=== PATIENT | male | born 1990 | race Two or more races ===

== ENCOUNTER 2016-06-13 00:58 | Inpatient (IN) | payer SELFPAY ==
[2016-06-13] VITALS (12 sets, daily range): BP systolic 105–128; BP diastolic 50–73
[~2016-06-13] VITALS: Ht 170.2 cm; Wt 78.0 kg
[2016-06-13 01:53] LABS: BILIRUBIN,URINE NEGATIVE (NEG); GLUCOSE,URINE NEGATIVE (NEG); NITRITE,URINE NEGATIVE (NEG); PROTEIN,URINE NEGATIVE (NEG-TRACE); UROBILINOGEN,URINE 0.2 mg/dL (0.2 mg/dL)
[2016-06-13 01:53] LABS: BASO % 0 % (0-3); EOS % 0 % (0-3); HEMATOCRIT 42.1 % (39.0-53.0); HEMOGLOBIN 13.6 g/dL (13.0-17.5); LYMPH # 1.3 x10^3/uL (1.0-4.8); LYMPH % 7 % (24-48); MEAN CORPUSCULAR HEMOGLOBIN 25 pg (25-35); MEAN CORPUSCULAR HGB CONC 32 g/dL (31-37); MEAN CORPUSCULAR VOLUME 78 fL (79-100); MONO % 8 % (0-9); NEUT % 85 % (31-73); PLATELET COUNT 233 x10^3/uL (140-400); RED CELL DISTRIBUTION WIDTH 15.3 % (11.5-14.5); WHITE BLOOD COUNT 18.7 x10^3/uL (4.0-11.0)
[2016-06-13] MEDS ORDERED: IV NORMAL SALINE 1000ML BAG 1,000 ML IV SCH (02:00)
[2016-06-13 02:03] LABS: BACTERIA,URINE 0 /HPF (0-FEW); RBC,URINE OCC /HPF (0-2); SQUAMOUS EPITHELIAL CELL,UR OCC /LPF; WBC,URINE 0 /HPF (0-4)
[2016-06-13 02:04] LABS: CALCIUM 8.9 mg/dL (8.5-10.1); CREATININE 0.9 mg/dL (0.7-1.3); GFR 103.7; POTASSIUM 3.6 mmol/L (3.5-5.1)
[2016-06-13 02:09] LABS: ALBUMIN 3.7 g/dL (3.4-5.0); ALBUMIN/GLOBULIN RATIO 0.9 (1.0-1.7); TOTAL BILIRUBIN 0.4 mg/dL (0.2-1.0); TOTAL PROTEIN 7.8 g/dL (6.4-8.2)
[2016-06-13] MEDS ORDERED: CONTRAST GIVEN MC PRN (02:15)
[2016-06-13] MEDS ORDERED: ONDANSETRON PF 4 MG/2 ML VIAL. IV ONE (02:15)
[2016-06-13] MEDS: FENTANYL PF 100 MCG/2 ML VIAL. IV PRN ×2 (02:16→03:03)
[2016-06-13] MEDS ORDERED: IOHEXOL 300 MG/ML 75 ML VIAL IV ONE (02:30)
[2016-06-13 03:02] LABS: PLT ESTIMATE ADEQUATE (ADEQUATE)
--- NOTE | 2016-06-13 03:10 | RAD ---
PQRS STATEMENT One or more of the following individualized dose reduction techniques were utilized for this study: 1.Automated exposure control. 2.Adjustment of the mA and/orkVaccording to patient size. 3.Use of iterative reconstruction technique. Indication:rlq pain x tonight; Omni 300, 75ml Reason: right lower quadrant pain, possible appendicitis / Spl. Instructions: / History: Comparison: none available Technique: multiple contiguous axial images were obtained through the abdomen and pelvis after intravenous administration of iodinated contrast. Coronal and sagittal reformations were created. Findings: The appendix is inflamed and contains at least 2 appendicoliths. There is no pneumoperitoneum. No loculated fluid collection. The lung bases are clear. The heart size is normal. The liver is normal in size with no focal lesions identified. The gallbladder is nondistended. The pancreas is unremarkable. The spleen and adrenal glands are within normal limits. The kidneys demonstrate no hydronephrosis or mass. The abdominal aorta is normal in caliber. There is no ascites or adenopathy. The bowel loops are normal in caliber. The urinary bladder is within normal limits. No destructive osseous lesion is identified. Impression: Acute appendicitis with no evidence for abscess or rupture. Electronically signed by: Alberto Catalan (Jun 13, 2016 03:09:11)
--- NOTE | 2016-06-13 03:23 | PHYS DOC ---
Past Medical History Past Medical History: No Pertinent History Past Surgical History: No Surgical History Alcohol Use: None Drug Use: None Adult General Chief Complaint Chief Complaint: FLANK PAIN HPI HPI Patient is a 26 year old male who presents with complaint of pain in the right lower quadrant of his abdomen. Patient states that this started yesterday morning. Patient states the pain has been constant and has been getting sharper in his right lower quadrant. Patient denies any significant past medical history. Patient also denies any previous surgeries. Patient states that he has had worsening anorexia and nausea. Patient denies known fevers but states that he has felt hot. Patient rates his pain currently is 10 out of 10. Patient denies radiation of pain. Patient states that his pain does worsen with movement. Review of Systems Review of Systems Constitutional: Subjective fever [] Eyes: Denies change in visual acuity, redness, or eye pain [] HENT: Denies nasal congestion or sore throat [] Respiratory: Denies cough or shortness of breath [] Cardiovascular: Denies chest pain or edema [] GI: Abdominal pain, nausea, anorexia, vomiting, denies bloody stools or diarrhea [] : Denies dysuria or hematuria [] Musculoskeletal: Denies back pain or joint pain [] Integument: Denies rash or skin lesions [] Neurologic: Denies headache, focal weakness or sensory changes [] Endocrine: Denies polyuria or polydipsia [] Current Medications Current Medications Current Medications Medications (Trade) Dose Ordered Sig/[facility] Start Time Stop Time Status Last Admin Dose Admin Fentanyl Citrate 50 mcg 50 mcg PRN Q15MIN PRN 06/13/16 01:45 06/13/16 04:00 DC 06/13/16 03:03 50 MCG Info (Do NOT chart on this entry -- for MONITORING) 1 each PRN DAILY PRN 06/13/16 02:15 06/15/16 02:14 Iohexol (Omnipaque 300 Mg/ml) 75 ml 1X ONCE 06/13/16 02:30 06/13/16 02:31 DC 06/13/16 02:47 75 ML Ondansetron HCl (Zofran) 4 mg 1X ONCE 06/13/16 02:15 06/13/16 02:16 DC 06/13/16 02:15 4 MG Sodium Chloride (Iv Sodium Chloride 0.9% 1000ml Bag) 1,000 ml @ 1,000 mls/hr Q1H 06/13/16 02:00 06/13/16 02:59 DC 06/13/16 02:15 1,000 MLS/HR Allergies Allergies Allergies Coded Allergies Type Severity Reaction Last Updated Verified No Known Drug Allergies 06/13/16 No Physical Exam Physical Exam Constitutional: Alert, afebrile, appears in moderate discomfort. [] HENT: Normocephalic, atraumatic, bilateral external ears normal, oropharynx moist, no oral exudates, nose normal. [] Eyes: PERRLA, EOMI, conjunctiva normal, no discharge. [] Neck: Normal range of motion, no tenderness, supple, no stridor. [] Cardiovascular:Heart rate regular rhythm, no murmur [] Lungs & Thorax: Bilateral breath sounds clear to auscultation [] Abdomen: Bowel sounds normal, soft, tenderness to palpation at McBurney's point with guarding. [] Skin: Warm, dry, no erythema, no rash. [] Back: No tenderness, no CVA tenderness. [] Extremities: No tenderness, no cyanosis, no clubbing, ROM intact, no edema. [] Neurologic: Alert and oriented X 3, normal motor function, normal sensory function, no focal deficits noted. [] Current Patient Data Vital Signs Vital Signs Date Time Temp Pulse Resp B/P Pulse Ox O2 Delivery O2 Flow Rate FiO2 06/13/16 03:03 20 99 Room Air 06/13/16 03:00 82 131/63 06/13/16 01:15 99.1 99.1 Lab Values Laboratory Tests Test 06/13/16 01:15 06/13/16 01:30 Urine Collection Type Unknown Urine Color Yellow Urine Clarity Clear Urine pH 6.0 Urine Specific [place] >=1.030 Urine Protein Negativemg/dL (NEG-TRACE) Urine Glucose (UA) Negativemg/dL (NEG) Urine Ketones (Stick) Negativemg/dL (NEG) Urine Blood Negative (NEG) Urine Nitrite Negative (NEG) Urine Bilirubin Negative (NEG) Urine Urobilinogen Dipstick 0.2mg/dL (0.2 mg/dL) Urine Leukocyte Esterase Negative (NEG) Urine RBC Occ/HPF (0-2) Urine WBC 0/HPF (0-4) Urine Squamous Epithelial Cells Occ/LPF Urine Bacteria 0/HPF (0-FEW) Urine Mucus Mod/LPF White Blood Count 18.7x10^3/uL (4.0-11.0) H Red Blood Count 5.40x10^6/uL (4.30-5.70) Hemoglobin 13.6g/dL (13.0-17.5) Hematocrit 42.1% (39.0-53.0) Mean Corpuscular Volume 78fL (79-100) L Mean Corpuscular Hemoglobin 25pg (25-35) Mean Corpuscular Hemoglobin Concent 32g/dL (31-37) Red Cell Distribution Width 15.3% (11.5-14.5) H Platelet Count 233x10^3/uL (140-400) Neutrophils (%) (Auto) 85% (31-73) H Lymphocytes (%) (Auto) 7% (24-48) L Monocytes (%) (Auto) 8% (0-9) Eosinophils (%) (Auto) 0% (0-3) Basophils (%) (Auto) 0% (0-3) Neutrophils # (Auto) 15.8x10^3uL (1.8-7.7) H Lymphocytes # (Auto) 1.3x10^3/uL (1.0-4.8) Monocytes # (Auto) 1.5x10^3/uL (0.0-1.1) H Eosinophils # (Auto) 0.0x10^3/uL (0.0-0.7) Basophils # (Auto) 0.0x10^3/uL (0.0-0.2) Segmented Neutrophils % 86% (35-66) H Band Neutrophils % 3% (0-9) Lymphocytes % 4% (24-48) L Monocytes % 7% (0-10) Platelet Estimate Adequate (ADEQUATE) Sodium Level 134mmol/L (136-145) L Potassium Level 3.6mmol/L (3.5-5.1) Chloride Level 97mmol/L (98-107) L Carbon Dioxide Level 26mmol/L (21-32) Anion Gap 11 (6-14) Blood Urea Nitrogen 9mg/dL (8-26) Creatinine 0.9mg/dL (0.7-1.3) Estimated GFR (Cockcroft-Gault) 103.7 BUN/Creatinine Ratio 10 (6-20) Glucose Level 118mg/dL (70-99) H Calcium Level 8.9mg/dL (8.5-10.1) Total Bilirubin 0.4mg/dL (0.2-1.0) Aspartate Amino Transferase (AST) 151U/L (15-37) H Alanine Aminotransferase (ALT) 75U/L (16-63) H Alkaline Phosphatase 88U/L (46-116) Total Protein 7.8g/dL (6.4-8.2) Albumin 3.7g/dL (3.4-5.0) Albumin/Globulin Ratio 0.9 (1.0-1.7) L Lipase 149U/L (73-393) Laboratory Tests 06/13/16 01:30 Laboratory Tests 06/13/16 01:30 EKG EKG Not performed [] Radiology/Procedures Radiology/Procedures [facility] [address] [place] [address] IMAGING REPORT Signed PATIENT: ACOSTA SHERMAN ACCOUNT: [id number] : 1990 LOCATION: ER AGE: 26 SEX: M EXAM STATUS: REG ER ORD. PHYSICIAN: PETER RAMIREZ MD REASON: right lower quadrant pain, possible appendicitis PROCEDURE: ABD PELV W/ IV CONTRAST ONLY PQRS STATEMENT One or more of the following individualized dose reduction techniques were utilized for this study: 1.Automated exposure control. 2.Adjustment of the mA and/orkVaccording to patient size. 3.Use of iterative reconstruction technique. Indication:rlq pain x tonight; Omni 300, 75ml Reason: right lower quadrant pain, possible appendicitis / Spl. Instructions: / History: Comparison: none available Technique: multiple contiguous axial images were obtained through the abdomen and pelvis after intravenous administration of iodinated contrast. Coronal and sagittal reformations were created. Findings: The appendix is inflamed and contains at least 2 appendicoliths. There is no pneumoperitoneum. No loculated fluid collection. The lung bases are clear. The heart size is normal. The liver is normal in size with no focal lesions identified. The gallbladder is nondistended. The pancreas is unremarkable. The spleen and adrenal glands are within normal limits. The kidneys demonstrate no hydronephrosis or mass. The abdominal aorta is normal in caliber. There is no ascites or adenopathy. The bowel loops are normal in caliber. The urinary bladder is within normal limits. No destructive osseous lesion is identified. Impression: Acute appendicitis with no evidence for abscess or rupture. Electronically signed by: Dayanara Catalan (Jun 13, 2016 03:09:11) DICTATED and SIGNED BY: DAYANARA CATALAN MD DATE: 06/13/16 0309 CC: PETER RAMIREZ MD; NO PCP ~ [] Course & Med Decision Making Course & Med Decision Making Pertinent Labs and Imaging studies reviewed. (See chart for details) Patient confirmed to have appendicitis. The patient was started on IV Zosyn. I spoke with Dr. Dacosta of general surgery who asked that the patient be admitted to his service. Patient will have expected surgery later today. Dragon Disclaimer Dragon Disclaimer This electronic medical record was generated, in whole or in part, using a voice recognition dictation system. Departure Departure Impression: Primary Impression: Acute appendicitis Disposition: ADMITTED INPATIENT Admitting Physician: Other Condition: STABLE Referrals: NO PCP (PCP) Problem Qualifiers Primary Impression: Acute appendicitis Acute appendicitis type: with localized peritonitis Qualified Code: K35.3 - Acute appendicitis with localized peritonitis PETER RAMIREZ MD Jun 13, 2016 03:22
[2016-06-13] MEDS ORDERED: ONDANSETRON PF 4 MG/2 ML VIAL. IV PRN ×4 (03:30→12:00)
[2016-06-13] MEDS ORDERED: FENTANYL PF 100 MCG/2 ML VIAL. IV PRN ×5 (03:30→08:30)
[2016-06-13] MEDS ORDERED: ACETAMINOPHEN 325 MG TABLET. PO PRN (03:30)
[2016-06-13] MEDS ORDERED: PIP/TAZO PER PHARMACY MC PRN (03:30)
[2016-06-13] MEDS ORDERED: PIPERACILLIN/TAZOBACTAM 4.5 GM in IV NORMAL SALINE 100ML 100 ML IV ONE (04:00)
--- NOTE | 2016-06-13 04:02 | ACF ---
Admission Forms Criteria ABDOMINAL PAIN Clinical Indications for Admission to Inpatient Care (Place 'X' for any and all applicable criteria): Admission is indicated for ANY ONE of the following(1)(2)(3)(4)(5): [X]I. Inpatient admission required rather than observation care (Also use Abdominal Pain: Observation Care, as appropriate) because of ANY ONE of the following: [ ]a) Severe pain requiring acute inpatient management [X]b) Identification of etiology/finding that requires inpatient care (eg, aortic dissection, free air) [ ]c) Absent bowel sounds with complete ileus(6) [ ]d) Suspected toxic megacolon [ ]e) Severe electrolyte abnormalities requiring inpatient care [ ]f) High fever or infection requiring inpatient admission as indicated by ANY ONE of following(7)(8): [ ] i) Appropriate outpatient or observational care antimicrobial treatment unavailable, not effective, or not feasible [ ] ii) Documented bacteremia [ ] iii) Temperature > 104.9 degrees F (oral) [ ] iv) T >103.1 F (oral) or < 96.8 F(rectal) that does not respond to all emergency treatment measures [ ]g) Signs of intestinal obstruction [B] [ ]h) Hemodynamic instability [ ]i) IV fluid to replace significant ongoing losses (greater than 3 L/m2 per day) (12)(13) [ ]j) Percutaneous or open drainage (eg, abscess, biliary tract ) procedures [ ]k) Parenteral nutrition regimen that must be implemented on inpatient basis [ ]l) Other condition,treatment or monitoring requiring inpatient admission. [ ]II. Peritoneal signs present [ ]III. Surgery needed that cannot be performed on an ambulatory basis. [ ]IV. Evaluation requires patient to not eat or drink for extended period ( eg, more than 24 hours). [ ]V. Contraindications and/or Inappropriate clinical situations for Observational Care in patients with abdominal pain, when ANY ONE of the following is required: [ ]a) Thorough evaluation is required to prevent catastrophic events due to delays in diagnosing (e.g.Mesenteric ischemia) 1,3 [ ]b) Patient with severe pathology or with chronic symptoms unlikely to improve in the ED stay (3) [ ]. General contraindications and/or Inappropriate clinical situations for Observational Care in patients with abdominal pain, when ANY ONE of the following is required: [ ]a) Prediction of prolongation of LOS based on ANY ONE of the following may be considered as a contraindication for observational care 2, 3, 4, 5, 6, 7, 8, 9, 10, 11 [ ]i) Age > 65 yrs. [ ]ii) Patient arriving by ambulance [ ]iii) Patient with high acuity [ ]iv) Patient requiring vital sign monitoring [ ]v) Patient on IV medication [ ]b) Systolic blood pressures 180mmHg 3,12 [ ]c) Patient with altered mental status including delirium and other alteration of consciousness, (3) [ ]d) Patient whose discharge disposition will be to a [place] [facility] home or rehabilitation home should not be managed in Emergency Department Observation Unit. CMS rule requires 3 days hospital stay before such placement.3,13 [ ]e) Patient with failure to thrive due to broad array of etiologies 3,16,17 [ ]f) Inability to ambulate 3,14 Extended stay beyond goal length of stay may be needed for(2)(3): [ ]a) Persistent abdominal pain with suspected intra-abdominal process [ ]b) Diagnosed condition requiring continued stay (e.g., pancreatitis, complicated diverticulitis) [ ]c) Surgery (e.g., colectomy) The original [facility] content created by [employer] has been revised. The portions of the content which have been revised are identified through the use of italic text or in bold, and [email or web address] has neither reviewed nor approved the modified material.All other unmodified content is copyright [employer] [facility]. Please see references footnoted in the original [facility] edition 2016 Admission Criteria Met?: Yes NILAM AZAR Jun 13, 2016 04:02
[2016-06-13] MEDS: IV NORMAL SALINE 1000ML BAG 1,000 ML IV SCH ×3 (04:34→19:23)
[2016-06-13] MEDS ORDERED: BUPIVACAINE-EPI 0.25%-1:200000 50 ML VIAL. ONE (08:26)
[2016-06-13] MEDS ORDERED: IV RINGERS,LACTATED 1000ML 1,000 ML IV SCH (08:26)
[2016-06-13] MEDS ORDERED: LIDOCAINE 1% 1 ML SYRINGE. ID PRN ×2 (08:30)
[2016-06-13] MEDS ORDERED: PROCHLORPERAZINE 10 MG/2 ML VIAL. IV PRN ×2 (08:30)
[2016-06-13] MEDS ORDERED: MORPHINE SULFATE 2 MG/ML DISP.SYRIN. IV PRN ×3 (08:30→12:00)
[2016-06-13] MEDS ORDERED: HYDROMORPHONE 2 MG/ML VIAL. IV PRN ×2 (08:30)
[2016-06-13] MEDS ORDERED: MIDAZOLAM HCL 2 MG/2 ML VIAL. ONE (10:07)
[2016-06-13] MEDS ORDERED: SEVOFLURANE 61 TO 120 MINUTES. IH ONE (10:07)
[2016-06-13] MEDS ORDERED: NEOSTIGMINE METHYLSULFATE 5 MG/5 ML SYRINGE. ONE ×2 (10:07→10:09)
[2016-06-13] MEDS ORDERED: GLYCOPYRROLATE 1 MG/5 ML VIAL. ONE (10:08)
[2016-06-13] MEDS ORDERED: FENTANYL PF 100 MCG/2 ML VIAL. ONE ×2 (10:08→11:26)
[2016-06-13] MEDS ORDERED: KETOROLAC 60 MG/2 ML SYRINGE FOR OR. ONE (10:09)
[2016-06-13] MEDS ORDERED: LIDOCAINE 2% 100 MG/5 ML DISP.SYRIN. ONE (10:09)
[2016-06-13] MEDS ORDERED: DEXAMETHASONE SOD PHOS 20 MG/5 ML VIAL. ONE (10:09)
[2016-06-13] MEDS ORDERED: PROPOFOL 20 ML IV ONE (10:09)
[2016-06-13] MEDS ORDERED: ONDANSETRON PF 4 MG/2 ML VIAL. ONE (10:09)
[2016-06-13] MEDS ORDERED: ROCURONIUM 50 MG/5 ML VIAL. ONE (10:11)
[2016-06-13] MEDS ORDERED: SUCCINYLCHOLINE 200 MG/10 ML VIAL. ONE (10:11)
[2016-06-13] MEDS: IV RINGERS,LACTATED 1000ML 1,000 ML IV SCH ×2 (10:16→12:07)
--- NOTE | 2016-06-13 10:41 | PDOC1 ---
History and Physical Date of Admission Date of Admission DATE: 06/13/16 TIME: 10:35 Identification/Chief Complaint Chief Complaint RLQ abdominal pain with nausea Source Source: Patient History of Present Illness History of Present Illness 26 yo male came to ED with abdominal pain for 12 hours. Pain is in the right abdomen, constant and getting worse. He has nausea and anorexia. Past Medical History Cardiovascular: No pertinent hx Pulmonary: No pertinent hx GI: No pertinent hx Heme/Onc: No pertinent hx Hepatobiliary: No pertinent hx Psych: No pertinent hx Rheumatologic: No pertinent hx Infectious disease: No pertinent hx ENT: No pertinent hx Renal/: No pertinent hx Endocrine: No pertinent hx Dermatology: No pertinent hx Past Surgical History Past Surgical History: No pertinent history Family History Family History: No Significant Social History Smoke: No ALCOHOL: none Drugs: None Current Problem List Problem List Problems Medical Problems: (1) Acute appendicitis Status: Acute Problems: Current Medications Current Medications Current Medications Fentanyl Citrate 50 mcg 50 mcg PRN Q15MIN PRN IV PAIN GREATER THAN 3/10 Last administered on 06/13/16 03:03; Start 06/13/16 at 01:45; Stop 06/13/16 at 04:00 ; Status DC Sodium Chloride (Iv Sodium Chloride 0.9% 1000ml Bag) 1,000 ml @ 1,000 mls/hr Q1H IV Last administered on 06/13/16 02:15; Start 06/13/16 at 02:00; Stop at 02:59; Status DC Ondansetron HCl (Zofran) 4 mg 1X ONCE IV Last administered on 06/13/16 02:15 ; Start 06/13/16 at 02:15; Stop 06/13/16 at 02:16; Status DC Iohexol (Omnipaque 300 Mg/ml) 75 ml 1X ONCE IV Last administered on 06/13/16 02:47; Start 06/13/16 at 02:30; Stop 06/13/16 at 02:31; Status DC Info (Do NOT chart on this entry -- for MONITORING) 1 each PRN DAILY PRN MC SEE COMMENTS; Start 06/13/16 at 02:15; Stop 06/15/16 at 02:14 Piperacillin Sod/ Tazobactam Sod 1 each 1 each PRN DAILY PRN MC SEE COMMENTS; Start 06/13/16 at 03:30 Piperacillin Sod/ Tazobactam Sod/ Sodium Chloride (Zosyn/Iv Sodium Chloride 0.9 % 100ml) 100 ml @ 200 mls/hr 1X ONCE IV Last administered on 06/13/16 03:37 ; Start 06/13/16 at 04:00; Stop 06/13/16 at 04:29; Status DC Ondansetron HCl (Zofran) 4 mg PRN Q8HRS PRN IV NAUSEA/VOMITING; Start 06/13/16 at 03:30; Stop 06/14/16 at 03:29 Fentanyl Citrate 50 mcg 50 mcg PRN Q2HR PRN IV SEVERE PAIN Last administered on 06/13/16 04:34; Start 06/13/16 at 03:30; Stop 06/14/16 at 03:29 Sodium Chloride (Iv Sodium Chloride 0.9% 1000ml Bag) 1,000 ml @ 125 mls/hr Q8H IV Last administered on 06/13/16 04:34; Start 06/13/16 at 03:23; Stop at 03:22 Acetaminophen 650 mg 650 mg PRN Q4HRS PRN PO FEVER; Start 06/13/16 at 03:30; Stop 06/14/16 at 03:29 Piperacillin Sod/ Tazobactam Sod/ Sodium Chloride (Zosyn/Iv Sodium Chloride 0.9 % 50ml) 50 ml @ 100 mls/hr Q6HRS IV ; Start 06/13/16 at 12:00 Bupivacaine HCl/ Epinephrine Bitart (Marcaine-Epi 0.25%-[id number]) 50 ml STK-MED ONCE .ROUTE ; Start 06/13/16 at 08:26; Stop 06/13/16 at 08:27; Status DC Ondansetron HCl (Zofran) 4 mg PRN Q6HRS PRN IV Nausea; Start 06/13/16 at 08:30 ; Stop 06/14/16 at 08:29; Status UNV Fentanyl Citrate (Fentanyl 2ml Vial) 25 mcg PRN Q5MIN PRN IV MILD PAIN; Start 06/13/16 at 08:30; Stop 06/14/16 at 08:29; Status UNV Fentanyl Citrate (Fentanyl 2ml Vial) 50 mcg PRN Q5MIN PRN IV MODERATE PAIN; Start 06/13/16 at 08:30; Stop 06/14/16 at 08:29; Status UNV Morphine Sulfate 1 mg 1 mg PRN Q10MIN PRN IV SEVERE PAIN; Start 06/13/16 at 08: 30; Stop 06/14/16 at 08:29; Status UNV Lactated Ringer's (Iv Lactated Ringers) 1,000 ml @ 0 mls/hr Q0M IV ; Start at 08:26; Stop 06/13/16 at 20:25; Status UNV Lidocaine HCl 2 ml 1X PRN PRN ID IV START; Start 06/13/16 at 08:30; Stop at 08:29; Status UNV Hydromorphone HCl (Dilaudid) 0.5 mg PRN Q10MIN PRN IV SEV PAIN,Second choice; Start 06/13/16 at 08:30; Stop 06/14/16 at 08:29; Status UNV Prochlorperazine Edisylate (Compazine) 5 mg PACU PRN PRN IV NAUSEA; Start 06/13 at 08:30; Stop 06/14/16 at 08:29; Status UNV Ondansetron HCl (Zofran) 4 mg PRN Q6HRS PRN IV Nausea; Start 06/13/16 at 08:30 ; Stop 06/13/16 at 18:00 Fentanyl Citrate (Fentanyl 2ml Vial) 25 mcg PRN Q5MIN PRN IV MILD PAIN; Start 06/13/16 at 08:30; Stop 06/13/16 at 18:00 Fentanyl Citrate (Fentanyl 2ml Vial) 50 mcg PRN Q5MIN PRN IV MODERATE PAIN; Start 06/13/16 at 08:30; Stop 06/13/16 at 18:00 Morphine Sulfate 1 mg 1 mg PRN Q10MIN PRN IV SEVERE PAIN; Start 06/13/16 at 08: 30; Stop 06/13/16 at 18:00 Lactated Ringer's (Iv Lactated Ringers) 1,000 ml @ 30 mls/hr Q24H IV Last administered on 06/13/16t 10:16; Start 06/13/16 at 08:26; Stop 06/13/16 at 20:25 Lidocaine HCl 2 ml 1X PRN PRN ID IV START; Start 06/13/16 at 08:30; Stop at 18:00 Hydromorphone HCl (Dilaudid) 0.5 mg PRN Q10MIN PRN IV SEV PAIN,Second choice; Start 06/13/16 at 08:30; Stop 06/13/16 at 18:00 Prochlorperazine Edisylate (Compazine) 5 mg PACU PRN PRN IV NAUSEA; Start 06/13 at 08:30; Stop 06/13/16 at 18:00 Sevoflurane (Ultane) 60 ml STK-MED ONCE IH ; Start 06/13/16 at 10:07; Stop 06/13 at 10:08; Status DC Neostigmine Methylsulfate 5 mg STK-MED ONCE .ROUTE ; Start 06/13/16 at 10:07; Stop 06/13/16 at 10:08; Status DC Midazolam HCl (Versed) 2 mg STK-MED ONCE .ROUTE ; Start 06/13/16 at 10:07; Stop 06/13/16 at 10:08; Status DC Fentanyl Citrate (Fentanyl 2ml Vial) 100 mcg STK-MED ONCE .ROUTE ; Start at 10:08; Stop 06/13/16 at 10:09; Status DC Glycopyrrolate 1 mg 1 mg STK-MED ONCE .ROUTE ; Start 06/13/16 at 10:08; Stop at 10:09; Status DC Propofol (Diprivan) 20 ml @ As Directed STK-MED ONCE IV ; Start 06/13/16 at 10: 09; Stop 06/13/16 at 10:10; Status DC Ondansetron HCl (Zofran) 4 mg STK-MED ONCE .ROUTE ; Start 06/13/16 at 10:09; Stop 06/13/16 at 10:10; Status DC Dexamethasone Sodium Phosphate (Decadron) 20 mg STK-MED ONCE .ROUTE ; Start at 10:09; Stop 06/13/16 at 10:10; Status DC Ketorolac Tromethamine (Toradol For Or Only) 60 mg STK-MED ONCE .ROUTE ; Start 06/13/16 at 10:09; Stop 06/13/16 at 10:10; Status DC Lidocaine HCl 100 mg STK-MED ONCE .ROUTE ; Start 06/13/16 at 10:09; Stop at 10:10; Status DC Neostigmine Methylsulfate 5 mg STK-MED ONCE .ROUTE ; Start 06/13/16 at 10:09; Stop 06/13/16 at 10:10; Status DC Succinylcholine Chloride (Anectine) 200 mg STK-MED ONCE .ROUTE ; Start 06/13/16 at 10:11; Stop 06/13/16 at 10:12; Status DC Rocuronium [place] (Zemuron) 50 mg STK-MED ONCE .ROUTE ; Start 06/13/16 at 10:11 ; Stop 06/13/16 at 10:12; Status DC Allergies Allergies: Coded Allergies: No Known Drug Allergies (Unverified , 06/13/16) ROS Gastrointestinal: Yes Abdominal Pain, Yes Nausea Physical Exam General: Alert, Oriented X3, Cooperative, mild distress HEENT: Atraumatic, PERRLA, EOMI Lungs: Clear to auscultation, Normal air movement Heart: RRR, no gallops, no murmurs Abdomen: Normal bowel sounds, Soft, Other (TTP RLQ) Rectal Exam: not examined Extremities: No clubbing, No cyanosis, No edema Skin: No rashes Neuro: Normal speech Psych/Mental Status: Mental status NL Vitals Vitals Vital Signs Date Time Temp Pulse Resp B/P Pulse Ox O2 Delivery O2 Flow Rate FiO2 06/13/16 07:00 100.4 100 16 117/61 96 Room Air 100.4 Labs Labs Laboratory Tests Test 06/13/16 01:15 06/13/16 01:30 Urine Collection Type Unknown Urine Color Yellow Urine Clarity Clear Urine pH 6.0 Urine Specific [place] >=1.030 Urine Protein Negativemg/dL (NEG-TRACE) Urine Glucose (UA) Negativemg/dL (NEG) Urine Ketones (Stick) Negativemg/dL (NEG) Urine Blood Negative (NEG) Urine Nitrite Negative (NEG) Urine Bilirubin Negative (NEG) Urine Urobilinogen Dipstick 0.2mg/dL (0.2 mg/dL) Urine Leukocyte Esterase Negative (NEG) Urine RBC Occ/HPF (0-2) Urine WBC 0/HPF (0-4) Urine Squamous Epithelial Cells Occ/LPF Urine Bacteria 0/HPF (0-FEW) Urine Mucus Mod/LPF White Blood Count 18.7x10^3/uL (4.0-11.0) Red Blood Count 5.40x10^6/uL (4.30-5.70) Hemoglobin 13.6g/dL (13.0-17.5) Hematocrit 42.1% (39.0-53.0) Mean Corpuscular Volume 78fL (79-100) Mean Corpuscular Hemoglobin 25pg (25-35) Mean Corpuscular Hemoglobin Concent 32g/dL (31-37) Red Cell Distribution Width 15.3% (11.5-14.5) Platelet Count 233x10^3/uL (140-400) Neutrophils (%) (Auto) 85% (31-73) Lymphocytes (%) (Auto) 7% (24-48) Monocytes (%) (Auto) 8% (0-9) Eosinophils (%) (Auto) 0% (0-3) Basophils (%) (Auto) 0% (0-3) Neutrophils # (Auto) 15.8x10^3uL (1.8-7.7) Lymphocytes # (Auto) 1.3x10^3/uL (1.0-4.8) Monocytes # (Auto) 1.5x10^3/uL (0.0-1.1) Eosinophils # (Auto) 0.0x10^3/uL (0.0-0.7) Basophils # (Auto) 0.0x10^3/uL (0.0-0.2) Segmented Neutrophils % 86% (35-66) Band Neutrophils % 3% (0-9) Lymphocytes % 4% (24-48) Monocytes % 7% (0-10) Platelet Estimate Adequate (ADEQUATE) Sodium Level 134mmol/L (136-145) Potassium Level 3.6mmol/L (3.5-5.1) Chloride Level 97mmol/L (98-107) Carbon Dioxide Level 26mmol/L (21-32) Anion Gap 11 (6-14) Blood Urea Nitrogen 9mg/dL (8-26) Creatinine 0.9mg/dL (0.7-1.3) Estimated GFR (Cockcroft-Gault) 103.7 BUN/Creatinine Ratio 10 (6-20) Glucose Level 118mg/dL (70-99) Calcium Level 8.9mg/dL (8.5-10.1) Total Bilirubin 0.4mg/dL (0.2-1.0) Aspartate Amino Transf (AST/SGOT) 151U/L (15-37) Alanine Aminotransferase (ALT/SGPT) 75U/L (16-63) Alkaline Phosphatase 88U/L (46-116) Total Protein 7.8g/dL (6.4-8.2) Albumin 3.7g/dL (3.4-5.0) Albumin/Globulin Ratio 0.9 (1.0-1.7) Lipase 149U/L (73-393) Laboratory Tests Test 06/13/16 01:15 06/13/16 01:30 Urine Collection Type Unknown Urine Color Yellow Urine Clarity Clear Urine pH 6.0 Urine Specific [place] >=1.030 Urine Protein Negativemg/dL (NEG-TRACE) Urine Glucose (UA) Negativemg/dL (NEG) Urine Ketones (Stick) Negativemg/dL (NEG) Urine Blood Negative (NEG) Urine Nitrite Negative (NEG) Urine Bilirubin Negative (NEG) Urine Urobilinogen Dipstick 0.2mg/dL (0.2 mg/dL) Urine Leukocyte Esterase Negative (NEG) Urine RBC Occ/HPF (0-2) Urine WBC 0/HPF (0-4) Urine Squamous Epithelial Cells Occ/LPF Urine Bacteria 0/HPF (0-FEW) Urine Mucus Mod/LPF White Blood Count 18.7x10^3/uL (4.0-11.0) Red Blood Count 5.40x10^6/uL (4.30-5.70) Hemoglobin 13.6g/dL (13.0-17.5) Hematocrit 42.1% (39.0-53.0) Mean Corpuscular Volume 78fL (79-100) Mean Corpuscular Hemoglobin 25pg (25-35) Mean Corpuscular Hemoglobin Concent 32g/dL (31-37) Red Cell Distribution Width 15.3% (11.5-14.5) Platelet Count 233x10^3/uL (140-400) Neutrophils (%) (Auto) 85% (31-73) Lymphocytes (%) (Auto) 7% (24-48) Monocytes (%) (Auto) 8% (0-9) Eosinophils (%) (Auto) 0% (0-3) Basophils (%) (Auto) 0% (0-3) Neutrophils # (Auto) 15.8x10^3uL (1.8-7.7) Lymphocytes # (Auto) 1.3x10^3/uL (1.0-4.8) Monocytes # (Auto) 1.5x10^3/uL (0.0-1.1) Eosinophils # (Auto) 0.0x10^3/uL (0.0-0.7) Basophils # (Auto) 0.0x10^3/uL (0.0-0.2) Segmented Neutrophils % 86% (35-66) Band Neutrophils % 3% (0-9) Lymphocytes % 4% (24-48) Monocytes % 7% (0-10) Platelet Estimate Adequate (ADEQUATE) Sodium Level 134mmol/L (136-145) Potassium Level 3.6mmol/L (3.5-5.1) Chloride Level 97mmol/L (98-107) Carbon Dioxide Level 26mmol/L (21-32) Anion Gap 11 (6-14) Blood Urea Nitrogen 9mg/dL (8-26) Creatinine 0.9mg/dL (0.7-1.3) Estimated GFR (Cockcroft-Gault) 103.7 BUN/Creatinine Ratio 10 (6-20) Glucose Level 118mg/dL (70-99) Calcium Level 8.9mg/dL (8.5-10.1) Total Bilirubin 0.4mg/dL (0.2-1.0) Aspartate Amino Transf (AST/SGOT) 151U/L (15-37) Alanine Aminotransferase (ALT/SGPT) 75U/L (16-63) Alkaline Phosphatase 88U/L (46-116) Total Protein 7.8g/dL (6.4-8.2) Albumin 3.7g/dL (3.4-5.0) Albumin/Globulin Ratio 0.9 (1.0-1.7) Lipase 149U/L (73-393) Images Images CT shows signs of acute appendicitis no abscess VTE Prophylaxis Ordered VTE Prophylaxis Devices: Yes VTE Pharmacological Prophylaxi: Contraindicated Assessment/Plan Assessment/Plan Acute appendicitis Plan L/S NAT Fraire MD Jun 13, 2016 10:41
[2016-06-13] MEDS: PIPERACILLIN/TAZOBACTAM 3.375 GM in IV NORMAL SALINE 50ML 50 ML IV SCH ×3 (10:55→18:01)
--- NOTE | 2016-06-13 11:53 | PDOC ---
BRIEF OPERATIVE NOTE Date: Jun 13, 2016 Pre-Op Diagnosis Acute appendicitis Post-Op Diagnosis Same Procedure Performed L/S appendectomy Surgeon Praneeth Anesthesia Type: General Blood Loss 10ml Specimens Obtained Appendix Findings as above Complications None NAT LEWIS MD Jun 13, 2016 11:53
[2016-06-13] MEDS ORDERED: 0.9 % SODIUM CHLORIDE 10 ML DISP.SYRIN. IV PRN (12:00)
[2016-06-13] MEDS ORDERED: OXYCODONE/APAP 5/325 TABLET. PO PRN ×2 (12:00)
--- NOTE | 2016-06-13 12:35 | OP ---
DATE OF SURGERY: 06/13/2016 PREOPERATIVE DIAGNOSIS: Acute appendicitis. POSTOPERATIVE DIAGNOSIS: Acute appendicitis. PROCEDURE: Laparoscopic cholecystectomy. SURGEON: Yaya Lewis MD INDICATIONS: The patient is a 26-year-old gentleman who was admitted to the hospital with right lower quadrant abdominal pain and a CT scan showing signs consistent with appendicitis, no abscess. Procedure of laparoscopic appendectomy was explained to the patient through an supervisor personnel clerks. All risks and benefits were also discussed including bleeding, infection, injury to intra-abdominal contents possibly necessitating further open operations. Alternatives of this procedure were also discussed with the patient who seemed to understand and gave verbal and written consent to have the procedure performed. DESCRIPTION OF PROCEDURE: The patient was taken to the operating room and placed in the supine position, general anesthesia was initiated. Once the patient was asleep and intubated, his abdomen was prepped and draped in usual sterile fashion using ChloraPrep. An area just below the umbilicus was injected 0.25% Marcaine with epinephrine. Incision was made with an 11 blade scalpel and a Veress needle was placed within the abdomen. Pneumoperitoneum was achieved. Once this was completed, an 12-mm port was placed and a 5-mm camera was placed within the abdomen. Abdomen was inspected and it was noted that the appendix was quite inflamed, but no abscess or free fluid. At this point, two 5-mm ports were placed, one low in the midline pelvis and one in the mid right abdomen. The appendix was grasped and a window was propagated at the base of the appendix through the mesoappendix. An Endo-SUJATA stapler was used to staple and transect the base of the appendix. A second load was used to staple and transect the mesoappendix. It was quite large, so 2 more loads were used to completely transect and staple the mesoappendix. Appendix was then placed in EndoCatch bag and removed from the umbilicus. Right lower quadrant and pelvis were irrigated and suctioned dry. Hemostasis deemed to be appropriate and the pneumoperitoneum was reduced. All ports were removed. The fascial defect at the umbilicus closed with [id number] 0 Vicryl suture and the skin was reapproximated at all port sites with 4-0 subcuticular Monocryl. Mastisol, Steri-Strips and Band-Aids were applied as dressings. The patient was awakened, extubated in the operating room, taken to recovery in stable condition. All sponge and instrument counts listed as correct. ESTIMATED BLOOD LOSS: 10 mL. YAYA LEWIS MD DR: JAMIL/german JOB#: [id number] / [id number]
[2016-06-13] MEDS ORDERED: ACETAMINOPHEN INTRAVENOUS 100 ML IV ONE ×2 (12:52→13:00)
[2016-06-13] MEDS: IV DEXTROSE 5%-LACT RINGERS 1,000 ML IV SCH (13:45)
[2016-06-13] MEDS: KETOROLAC 15 MG/ML VIAL. IV SCH ×2 (13:46→18:00)
[2016-06-14] MEDS: KETOROLAC 15 MG/ML VIAL. IV SCH ×4 (00:36→17:31)
[2016-06-14] MEDS: PIPERACILLIN/TAZOBACTAM 3.375 GM in IV NORMAL SALINE 50ML 50 ML IV SCH ×4 (00:38→17:31)
[2016-06-14] MEDS: IV DEXTROSE 5%-LACT RINGERS 1,000 ML IV SCH ×2 (01:50→15:10)
[2016-06-14 03:00] VITALS: BP 109/60
[2016-06-14 06:07] LABS: BASO % 0 % (0-3); EOS % 0 % (0-3); HEMATOCRIT 36.5 % (39.0-53.0); HEMOGLOBIN 11.6 g/dL (13.0-17.5); LYMPH # 1.2 x10^3/uL (1.0-4.8); LYMPH % 7 % (24-48); MEAN CORPUSCULAR HEMOGLOBIN 25 pg (25-35); MEAN CORPUSCULAR HGB CONC 32 g/dL (31-37); MEAN CORPUSCULAR VOLUME 79 fL (79-100); MONO % 7 % (0-9); NEUT % 87 % (31-73); PLATELET COUNT 212 x10^3/uL (140-400); RED BLOOD COUNT 4.65 x10^6/uL (4.30-5.70); RED CELL DISTRIBUTION WIDTH 15.1 % (11.5-14.5); WHITE BLOOD COUNT 18.7 x10^3/uL (4.0-11.0)
[2016-06-14 06:13] LABS: CALCIUM 8.6 mg/dL (8.5-10.1); CREATININE 0.9 mg/dL (0.7-1.3); GFR 103.7; POTASSIUM 3.9 mmol/L (3.5-5.1)
[2016-06-14 07:00] VITALS: BP 106/57
[2016-06-14] MEDS ORDERED: FLU VACC QUAD 2016-17 (36MOS+)/PF 0.5 ML SYRINGE. VAX IM ONE (09:00)
--- NOTE | 2016-06-14 10:53 | PDOC ---
SARA GALEANA [employer] 06/14/16 1053: SURGICAL PROGRESS NOTE Subjective tolerating diet pain controlled ambulating urinating Vital Signs Vital Signs Date Time Temp Pulse Resp B/P Pulse Ox O2 Delivery O2 Flow Rate FiO2 06/14/16 07:00 97.9 61 18 106/57 97 Room Air 97.9 06/13/16 12:18 10 I&O Intake and Output 06/14/16 07:00 Intake Total 2595 ml Output Total 10 ml Balance 2585 ml IV Total 2050 ml Other 545 ml Output Estimated Blood Loss 10 ml # Voids 2 General: Alert, Oriented X3, Cooperative, No acute distress Abdomen: Soft, Other (lap dressings dry) Labs Laboratory Tests Test 06/13/16 01:15 06/13/16 01:30 06/14/16 05:10 Urine Collection Type Unknown Urine Color Yellow Urine Clarity Clear Urine pH 6.0 Urine Specific [place] >=1.030 Urine Protein Negativemg/dL (NEG-TRACE) Urine Glucose (UA) Negativemg/dL (NEG) Urine Ketones (Stick) Negativemg/dL (NEG) Urine Blood Negative (NEG) Urine Nitrite Negative (NEG) Urine Bilirubin Negative (NEG) Urine Urobilinogen Dipstick 0.2mg/dL (0.2 mg/dL) Urine Leukocyte Esterase Negative (NEG) Urine RBC Occ/HPF (0-2) Urine WBC 0/HPF (0-4) Urine Squamous Epithelial Cells Occ/LPF Urine Bacteria 0/HPF (0-FEW) Urine Mucus Mod/LPF White Blood Count 18.7x10^3/uL (4.0-11.0) 18.7x10^3/uL (4.0-11.0) Red Blood Count 5.40x10^6/uL (4.30-5.70) 4.65x10^6/uL (4.30-5.70) Hemoglobin 13.6g/dL (13.0-17.5) 11.6g/dL (13.0-17.5) Hematocrit 42.1% (39.0-53.0) 36.5% (39.0-53.0) Mean Corpuscular Volume 78fL (79-100) 79fL (79-100) Mean Corpuscular Hemoglobin 25pg (25-35) 25pg (25-35) Mean Corpuscular Hemoglobin Concent 32g/dL (31-37) 32g/dL (31-37) Red Cell Distribution Width 15.3% (11.5-14.5) 15.1% (11.5-14.5) Platelet Count 233x10^3/uL (140-400) 212x10^3/uL (140-400) Neutrophils (%) (Auto) 85% (31-73) 87% (31-73) Lymphocytes (%) (Auto) 7% (24-48) 7% (24-48) Monocytes (%) (Auto) 8% (0-9) 7% (0-9) Eosinophils (%) (Auto) 0% (0-3) 0% (0-3) Basophils (%) (Auto) 0% (0-3) 0% (0-3) Neutrophils # (Auto) 15.8x10^3uL (1.8-7.7) 16.2x10^3uL (1.8-7.7) Lymphocytes # (Auto) 1.3x10^3/uL (1.0-4.8) 1.2x10^3/uL (1.0-4.8) Monocytes # (Auto) 1.5x10^3/uL (0.0-1.1) 1.3x10^3/uL (0.0-1.1) Eosinophils # (Auto) 0.0x10^3/uL (0.0-0.7) 0.0x10^3/uL (0.0-0.7) Basophils # (Auto) 0.0x10^3/uL (0.0-0.2) 0.0x10^3/uL (0.0-0.2) Segmented Neutrophils % 86% (35-66) Band Neutrophils % 3% (0-9) Lymphocytes % 4% (24-48) Monocytes % 7% (0-10) Platelet Estimate Adequate (ADEQUATE) Sodium Level 134mmol/L (136-145) 138mmol/L (136-145) Potassium Level 3.6mmol/L (3.5-5.1) 3.9mmol/L (3.5-5.1) Chloride Level 97mmol/L (98-107) 105mmol/L (98-107) Carbon Dioxide Level 26mmol/L (21-32) 25mmol/L (21-32) Anion Gap 11 (6-14) 8 (6-14) Blood Urea Nitrogen 9mg/dL (8-26) 10mg/dL (8-26) Creatinine 0.9mg/dL (0.7-1.3) 0.9mg/dL (0.7-1.3) Estimated GFR (Cockcroft-Gault) 103.7 103.7 BUN/Creatinine Ratio 10 (6-20) Glucose Level 118mg/dL (70-99) 124mg/dL (70-99) Calcium Level 8.9mg/dL (8.5-10.1) 8.6mg/dL (8.5-10.1) Total Bilirubin 0.4mg/dL (0.2-1.0) Aspartate Amino Transf (AST/SGOT) 151U/L (15-37) Alanine Aminotransferase (ALT/SGPT) 75U/L (16-63) Alkaline Phosphatase 88U/L (46-116) Total Protein 7.8g/dL (6.4-8.2) Albumin 3.7g/dL (3.4-5.0) Albumin/Globulin Ratio 0.9 (1.0-1.7) Lipase 149U/L (73-393) Laboratory Tests Test 06/14/16 05:10 White Blood Count 18.7x10^3/uL (4.0-11.0) Red Blood Count 4.65x10^6/uL (4.30-5.70) Hemoglobin 11.6g/dL (13.0-17.5) Hematocrit 36.5% (39.0-53.0) Mean Corpuscular Volume 79fL (79-100) Mean Corpuscular Hemoglobin 25pg (25-35) Mean Corpuscular Hemoglobin Concent 32g/dL (31-37) Red Cell Distribution Width 15.1% (11.5-14.5) Platelet Count 212x10^3/uL (140-400) Neutrophils (%) (Auto) 87% (31-73) Lymphocytes (%) (Auto) 7% (24-48) Monocytes (%) (Auto) 7% (0-9) Eosinophils (%) (Auto) 0% (0-3) Basophils (%) (Auto) 0% (0-3) Neutrophils # (Auto) 16.2x10^3uL (1.8-7.7) Lymphocytes # (Auto) 1.2x10^3/uL (1.0-4.8) Monocytes # (Auto) 1.3x10^3/uL (0.0-1.1) Eosinophils # (Auto) 0.0x10^3/uL (0.0-0.7) Basophils # (Auto) 0.0x10^3/uL (0.0-0.2) Sodium Level 138mmol/L (136-145) Potassium Level 3.9mmol/L (3.5-5.1) Chloride Level 105mmol/L (98-107) Carbon Dioxide Level 25mmol/L (21-32) Anion Gap 8 (6-14) Blood Urea Nitrogen 10mg/dL (8-26) Creatinine 0.9mg/dL (0.7-1.3) Estimated GFR (Cockcroft-Gault) 103.7 Glucose Level 124mg/dL (70-99) Calcium Level 8.6mg/dL (8.5-10.1) Problem List Problems Medical Problems: (1) Acute appendicitis Status: Acute Assessment/Plan s/p lap appy wbc 18.4 continue abx, recheck cbc in am Problems: JARRELL JONES MD 06/15/16 1044: SURGICAL PROGRESS NOTE Assessment/Plan Agree with above Problems: SARA GALEANA APRN Jun 14, 2016 10:53 JARRELL JONES MD Jun 15, 2016 10:44
[2016-06-14 11:00] VITALS: BP 114/55
[2016-06-14 15:00] VITALS: BP 101/46
[2016-06-14 19:00] VITALS: BP 106/65
[2016-06-14 23:00] VITALS: BP 120/73
[2016-06-15] MEDS: KETOROLAC 15 MG/ML VIAL. IV SCH ×3 (00:56→11:48)
[2016-06-15] MEDS: PIPERACILLIN/TAZOBACTAM 3.375 GM in IV NORMAL SALINE 50ML 50 ML IV SCH ×3 (00:56→11:48)
[2016-06-15 03:00] VITALS: BP 116/73
[2016-06-15] MEDS: IV DEXTROSE 5%-LACT RINGERS 1,000 ML IV SCH (04:30)
[2016-06-15 04:40] LABS: BASO % 0 % (0-3); EOS % 1 % (0-3); HEMATOCRIT 35.8 % (39.0-53.0); HEMOGLOBIN 11.6 g/dL (13.0-17.5); LYMPH # 2.1 x10^3/uL (1.0-4.8); LYMPH % 21 % (24-48); MEAN CORPUSCULAR HEMOGLOBIN 25 pg (25-35); MEAN CORPUSCULAR HGB CONC 32 g/dL (31-37); MEAN CORPUSCULAR VOLUME 78 fL (79-100); MONO % 7 % (0-9); NEUT % 71 % (31-73); PLATELET COUNT 209 x10^3/uL (140-400); RED BLOOD COUNT 4.57 x10^6/uL (4.30-5.70); RED CELL DISTRIBUTION WIDTH 15.4 % (11.5-14.5); WHITE BLOOD COUNT 10.3 x10^3/uL (4.0-11.0)
[2016-06-15 07:00] VITALS: BP 115/66
[2016-06-15 11:00] VITALS: BP 112/65
--- NOTE | 2016-06-15 12:55 | PDOC ---
PROGRESS NOTES Subjective Subjective doing well, no complaints, ready to go home Objective Objective Vital Signs Date Time Temp Pulse Resp B/P Pulse Ox O2 Delivery O2 Flow Rate FiO2 06/15/16 11:00 97.4 63 20 112/65 98 Room Air 97.4 06/13/16 12:18 10 Intake and Output 06/15/16 07:00 Intake Total 300 ml Balance 300 ml Intake Oral 300 ml # Voids 4 # Bowel Movements 1 Physical Exam Physical Exam abdomen soft Assessment Assessment Problems Medical Problems: (1) Acute appendicitis Status: Acute Plan Plan of Care Discharge Comment Review of Relevant I have reviewed the following items ralf (where applicable) has been applied. Labs Laboratory Tests Test 06/14/16 05:10 06/15/16 04:15 White Blood Count 18.7x10^3/uL (4.0-11.0) 10.3x10^3/uL (4.0-11.0) Red Blood Count 4.65x10^6/uL (4.30-5.70) 4.57x10^6/uL (4.30-5.70) Hemoglobin 11.6g/dL (13.0-17.5) 11.6g/dL (13.0-17.5) Hematocrit 36.5% (39.0-53.0) 35.8% (39.0-53.0) Mean Corpuscular Volume 79fL (79-100) 78fL (79-100) Mean Corpuscular Hemoglobin 25pg (25-35) 25pg (25-35) Mean Corpuscular Hemoglobin Concent 32g/dL (31-37) 32g/dL (31-37) Red Cell Distribution Width 15.1% (11.5-14.5) 15.4% (11.5-14.5) Platelet Count 212x10^3/uL (140-400) 209x10^3/uL (140-400) Neutrophils (%) (Auto) 87% (31-73) 71% (31-73) Lymphocytes (%) (Auto) 7% (24-48) 21% (24-48) Monocytes (%) (Auto) 7% (0-9) 7% (0-9) Eosinophils (%) (Auto) 0% (0-3) 1% (0-3) Basophils (%) (Auto) 0% (0-3) 0% (0-3) Neutrophils # (Auto) 16.2x10^3uL (1.8-7.7) 7.4x10^3uL (1.8-7.7) Lymphocytes # (Auto) 1.2x10^3/uL (1.0-4.8) 2.1x10^3/uL (1.0-4.8) Monocytes # (Auto) 1.3x10^3/uL (0.0-1.1) 0.7x10^3/uL (0.0-1.1) Eosinophils # (Auto) 0.0x10^3/uL (0.0-0.7) 0.0x10^3/uL (0.0-0.7) Basophils # (Auto) 0.0x10^3/uL (0.0-0.2) 0.0x10^3/uL (0.0-0.2) Sodium Level 138mmol/L (136-145) Potassium Level 3.9mmol/L (3.5-5.1) Chloride Level 105mmol/L (98-107) Carbon Dioxide Level 25mmol/L (21-32) Anion Gap 8 (6-14) Blood Urea Nitrogen 10mg/dL (8-26) Creatinine 0.9mg/dL (0.7-1.3) Estimated GFR (Cockcroft-Gault) 103.7 Glucose Level 124mg/dL (70-99) Calcium Level 8.6mg/dL (8.5-10.1) Laboratory Tests Test 06/15/16 04:15 White Blood Count 10.3x10^3/uL (4.0-11.0) Red Blood Count 4.57x10^6/uL (4.30-5.70) Hemoglobin 11.6g/dL (13.0-17.5) Hematocrit 35.8% (39.0-53.0) Mean Corpuscular Volume 78fL (79-100) Mean Corpuscular Hemoglobin 25pg (25-35) Mean Corpuscular Hemoglobin Concent 32g/dL (31-37) Red Cell Distribution Width 15.4% (11.5-14.5) Platelet Count 209x10^3/uL (140-400) Neutrophils (%) (Auto) 71% (31-73) Lymphocytes (%) (Auto) 21% (24-48) Monocytes (%) (Auto) 7% (0-9) Eosinophils (%) (Auto) 1% (0-3) Basophils (%) (Auto) 0% (0-3) Neutrophils # (Auto) 7.4x10^3uL (1.8-7.7) Lymphocytes # (Auto) 2.1x10^3/uL (1.0-4.8) Monocytes # (Auto) 0.7x10^3/uL (0.0-1.1) Eosinophils # (Auto) 0.0x10^3/uL (0.0-0.7) Basophils # (Auto) 0.0x10^3/uL (0.0-0.2) Medications Current Medications Fentanyl Citrate 50 mcg 50 mcg PRN Q15MIN PRN IV PAIN GREATER THAN 3/10 Last administered on 06/13/16 03:03; Start 06/13/16 at 01:45; Stop 06/13/16 at 04:00 ; Status DC Sodium Chloride (Iv Sodium Chloride 0.9% 1000ml Bag) 1,000 ml @ 1,000 mls/hr Q1H IV Last administered on 06/13/16 02:15; Start 06/13/16 at 02:00; Stop at 02:59; Status DC Ondansetron HCl (Zofran) 4 mg 1X ONCE IV Last administered on 06/13/16 02:15 ; Start 06/13/16 at 02:15; Stop 06/13/16 at 02:16; Status DC Iohexol (Omnipaque 300 Mg/ml) 75 ml 1X ONCE IV Last administered on 06/13/16 02:47; Start 06/13/16 at 02:30; Stop 06/13/16 at 02:31; Status DC Info (Do NOT chart on this entry -- for MONITORING) 1 each PRN DAILY PRN MC SEE COMMENTS; Start 06/13/16 at 02:15; Stop 06/15/16 at 02:14; Status DC Piperacillin Sod/ Tazobactam Sod 1 each 1 each PRN DAILY PRN MC SEE COMMENTS; Start 06/13/16 at 03:30 Piperacillin Sod/ Tazobactam Sod/ Sodium Chloride (Zosyn/Iv Sodium Chloride 0.9 % 100ml) 100 ml @ 200 mls/hr 1X ONCE IV Last administered on 06/13/16 03:37 ; Start 06/13/16 at 04:00; Stop 06/13/16 at 04:29; Status DC Ondansetron HCl (Zofran) 4 mg PRN Q8HRS PRN IV NAUSEA/VOMITING; Start 06/13/16 at 03:30; Stop 06/14/16 at 03:29; Status DC Fentanyl Citrate 50 mcg 50 mcg PRN Q2HR PRN IV SEVERE PAIN Last administered on 06/13/16 04:34; Start 06/13/16 at 03:30; Stop 06/14/16 at 03:29; Status DC Sodium Chloride (Iv Sodium Chloride 0.9% 1000ml Bag) 1,000 ml @ 125 mls/hr Q8H IV Last administered on 06/13/16 04:34; Start 06/13/16 at 03:23; Stop at 03:22; Status DC Acetaminophen 650 mg 650 mg PRN Q4HRS PRN PO FEVER; Start 06/13/16 at 03:30; Stop 06/14/16 at 03:29; Status DC Piperacillin Sod/ Tazobactam Sod/ Sodium Chloride (Zosyn/Iv Sodium Chloride 0.9 % 50ml) 50 ml @ 100 mls/hr Q6HRS IV Last administered on 06/15/16 11:48; Start 06/13/16 at 12:00 Bupivacaine HCl/ Epinephrine Bitart (Marcaine-Epi 0.25%-1:901032) 50 ml STK-MED ONCE .ROUTE Last administered on 06/13/16 11:07; Start 06/13/16 at 08:26; Stop 06/13/16 at 08:27; Status DC Ondansetron HCl (Zofran) 4 mg PRN Q6HRS PRN IV Nausea; Start 06/13/16 at 08:30 ; Stop 06/14/16 at 08:29; Status UNV Fentanyl Citrate (Fentanyl 2ml Vial) 25 mcg PRN Q5MIN PRN IV MILD PAIN; Start 06/13/16 at 08:30; Stop 06/14/16 at 08:29; Status UNV Fentanyl Citrate (Fentanyl 2ml Vial) 50 mcg PRN Q5MIN PRN IV MODERATE PAIN; Start 06/13/16 at 08:30; Stop 06/14/16 at 08:29; Status UNV Morphine Sulfate 1 mg 1 mg PRN Q10MIN PRN IV SEVERE PAIN; Start 06/13/16 at 08: 30; Stop 06/14/16 at 08:29; Status UNV Lactated Ringer's (Iv Lactated Ringers) 1,000 ml @ 0 mls/hr Q0M IV ; Start at 08:26; Stop 06/13/16 at 20:25; Status UNV Lidocaine HCl 2 ml 1X PRN PRN ID IV START; Start 06/13/16 at 08:30; Stop at 08:29; Status UNV Hydromorphone HCl (Dilaudid) 0.5 mg PRN Q10MIN PRN IV SEV PAIN,Second choice; Start 06/13/16 at 08:30; Stop 06/14/16 at 08:29; Status UNV Prochlorperazine Edisylate (Compazine) 5 mg PACU PRN PRN IV NAUSEA; Start 06/13 at 08:30; Stop 06/14/16 at 08:29; Status UNV Ondansetron HCl (Zofran) 4 mg PRN Q6HRS PRN IV Nausea Last administered on 06/13t 13:51; Start 06/13/16 at 08:30; Stop 06/13/16 at 18:00; Status DC Fentanyl Citrate (Fentanyl 2ml Vial) 25 mcg PRN Q5MIN PRN IV MILD PAIN; Start 06/13/16 at 08:30; Stop 06/13/16 at 18:00; Status DC Fentanyl Citrate (Fentanyl 2ml Vial) 50 mcg PRN Q5MIN PRN IV MODERATE PAIN; Start 06/13/16 at 08:30; Stop 06/13/16 at 18:00; Status DC Morphine Sulfate 1 mg 1 mg PRN Q10MIN PRN IV SEVERE PAIN; Start 06/13/16 at 08: 30; Stop 06/13/16 at 18:00; Status DC Lactated Ringer's (Iv Lactated Ringers) 1,000 ml @ 30 mls/hr Q24H IV Last administered on 06/13/16t 12:07; Start 06/13/16 at 08:26; Stop 06/13/16 at 20:25 ; Status DC Lidocaine HCl 2 ml 1X PRN PRN ID IV START; Start 06/13/16 at 08:30; Stop at 18:00; Status DC Hydromorphone HCl (Dilaudid) 0.5 mg PRN Q10MIN PRN IV SEV PAIN,Second choice; Start 06/13/16 at 08:30; Stop 06/13/16 at 18:00; Status DC Prochlorperazine Edisylate (Compazine) 5 mg PACU PRN PRN IV NAUSEA; Start 06/13 at 08:30; Stop 06/13/16 at 18:00; Status DC Sevoflurane (Ultane) 60 ml STK-MED ONCE IH ; Start 06/13/16 at 10:07; Stop 06/13 at 10:08; Status DC Neostigmine Methylsulfate 5 mg STK-MED ONCE .ROUTE ; Start 06/13/16 at 10:07; Stop 06/13/16 at 10:08; Status DC Midazolam HCl (Versed) 2 mg STK-MED ONCE .ROUTE ; Start 06/13/16 at 10:07; Stop 06/13/16 at 10:08; Status DC Fentanyl Citrate (Fentanyl 2ml Vial) 100 mcg STK-MED ONCE .ROUTE ; Start at 10:08; Stop 06/13/16 at 10:09; Status DC Glycopyrrolate 1 mg 1 mg STK-MED ONCE .ROUTE ; Start 06/13/16 at 10:08; Stop at 10:09; Status DC Propofol (Diprivan) 20 ml @ As Directed STK-MED ONCE IV ; Start 06/13/16 at 10: 09; Stop 06/13/16 at 10:10; Status DC Ondansetron HCl (Zofran) 4 mg STK-MED ONCE .ROUTE ; Start 06/13/16 at 10:09; Stop 06/13/16 at 10:10; Status DC Dexamethasone Sodium Phosphate (Decadron) 20 mg STK-MED ONCE .ROUTE ; Start at 10:09; Stop 06/13/16 at 10:10; Status DC Ketorolac Tromethamine (Toradol For Or Only) 60 mg STK-MED ONCE .ROUTE ; Start 06/13/16 at 10:09; Stop 06/13/16 at 10:10; Status DC Lidocaine HCl 100 mg STK-MED ONCE .ROUTE ; Start 06/13/16 at 10:09; Stop at 10:10; Status DC Neostigmine Methylsulfate 5 mg STK-MED ONCE .ROUTE ; Start 06/13/16 at 10:09; Stop 06/13/16 at 10:10; Status DC Succinylcholine Chloride (Anectine) 200 mg STK-MED ONCE .ROUTE ; Start 06/13/16 at 10:11; Stop 06/13/16 at 10:12; Status DC Rocuronium Geneva (Zemuron) 50 mg STK-MED ONCE .ROUTE ; Start 06/13/16 at 10:11 ; Stop 06/13/16 at 10:12; Status DC Fentanyl Citrate (Fentanyl 2ml Vial) 100 mcg STK-MED ONCE .ROUTE ; Start at 11:26; Stop 06/13/16 at 11:27; Status DC Sodium Chloride (Normal Saline Flush) 3 ml QSHIFT PRN IV AFTER MEDS AND BLOOD DRAWS; Start 06/13/16 at 12:00 Morphine Sulfate 2 mg PRN Q3HRS PRN IV PAIN; Start 06/13/16 at 12:00 Oxycodone/ Acetaminophen (Percocet 5/325) 1 tab PRN Q4HRS PRN PO MILD PAIN, 1ST CHOICE; Start 06/13/16 at 12:00 Oxycodone/ Acetaminophen (Percocet 5/325) 2 tab PRN Q4HRS PRN PO MODERATE PAIN , SEVERE PAIN; Start 06/13/16 at 12:00 Ketorolac Tromethamine (Toradol) 15 mg Q6HRS IV Last administered on 06/15/16t 06:17; Start 06/13/16 at 12:30; Stop 06/15/16 at 12:29; Status DC Ondansetron HCl 4 mg 4 mg PRN Q6HRS PRN IV NAUSEA, 1ST CHOICE; Start 06/13/16 at 12:00 Dextrose/Lactated Ringer's 1,000 ml @ 75 mls/hr [id number] IV Last administered on 06/13/16t 13:45; Start 06/13/16 at 12:30; Stop 06/15/16 at 04:55; Status DC Acetaminophen 100 ml @ 400 mls/hr 1X ONCE IV Last administered on 06/13/16t 12:53; Start 06/13/16 at 13:00; Stop 06/13/16 at 13:14; Status DC Acetaminophen (Ofirmev) 100 ml @ As Directed STK-MED ONCE IV ; Start 06/13/16 at 12:52; Stop 06/13/16 at 12:53; Status DC Influenza Virus Vaccine Quadrival (Fluarix Quad [id number] Syringe) 0.5 ml ONCE ONCE VAX IM ; Start 06/14/16 at 09:00; Stop 06/14/16 at 09:01; Status DC Vitals/I & O Vital Sign - Last 24 Hours 06/14/16 06/14/16 06/14/16 06/15/16 15:00 19:00 23:00 03:00 Temp 98.2 97.8 97.9 97.8 98.2 97.8 97.9 97.8 Pulse 66 62 80 64 Resp 18 18 18 18 B/P 101/46 106/65 120/73 116/73 Pulse Ox 96 98 96 97 O2 Delivery Room Air Room Air Room Air 06/15/16 06/15/16 06/15/16 07:00 08:09 11:00 Temp 97.8 97.4 97.8 97.4 Pulse 55 63 Resp 16 20 B/P 115/66 112/65 Pulse Ox 98 98 O2 Delivery Room Air Room Air Room Air Intake and Output 06/14/16 06/14/16 06/15/16 15:00 23:00 07:00 Intake Total 300 ml Balance 300 ml JARRELL JONES MD Jun 15, 2016 12:55
--- NOTE | 2016-06-15 12:56 | DISCH ---
DISCHARGE INSTRUCTIONS Condition on Discharge Condition on Discharge: Stable Activity After Discharge Activity Instructions for Disc: Other, see below (no lifting over 20 lbs X 2 weeks) Diet after Discharge Diet after Discharge: Regular Follow-Up Follow up with: Dr Dacosta in 2 weeks, call for appt [phone] JARRELL JONES MD Jun 15, 2016 12:56
--- NOTE | 2016-06-16 13:49 | PATHOLOGY ---
PATHOLOGY REPORT * * * * * * * * FINAL DIAGNOSIS: Appendix, laparoscopic appendectomy: - Acute appendicitis with serosal exudate. COMMENT: There is no evidence of rupture. (JPM:all; d/t: 06/16/2016) REPORT ELECTRONICALLY SIGNED BY: Earnest Hsieh M.D. DATE/TIME: 06/16/2016 13:48 * * * * * * * * GROSS PATHOLOGY: Received in formalin labeled "Morgan Contreras, appendix," is an appendix measuring 10.1 cm in length and 1.0 cm in diameter with a moderate amount of attached mesoappendix. The serosal surface is pink-red to dusky pink-juarez in appearance. Sectioning reveals a dilated lumen filled with fecal material admixed with blood coagulum. Nursing Home Assistant sections are submitted in cassette A1. (CAA; 06/13/2016) INITIAL CPT CODE(S): A; 19850 Professional services performed [place] [facility] [place] [address] Technical services performed by [facility] at [address] [place] [address]. SPECIMEN(S) RECEIVED: A.Appendix CLINICAL HISTORY: Acute appendicitis PATIENT: MORGAN CONTRERAS /AGE: 11 1990 (Age: 26) PATIENT #: [id number] ALT CASE #: SPECIMEN COLLECTION DATE: 06/13/2016 SPECIMEN RECEIVED DATE: 06/13/2016 [facility] - [address] [place] [address] - PHONE: [phone] * * * END OF REPORT * * *
== END 2016-06-15 13:30 | disposition home or self-care (01) | DRG 342 ==
LOC: ER 00:58 → 4 NORTH 03:14
PROVIDERS: ADMIT Surgery; ATTEND Surgery
PROC: 0DTJ4ZZ Resection of Appendix, Percutaneous Endoscopic Approach (ICD-10-PCS; principal; 2016-06-13 10:30)
DX: K35.80 Unspecified acute appendicitis (principal); E87.1 Hypo-osmolality and hyponatremia; K66.8 Other specified disorders of peritoneum; Z79.899 Other long term (current) drug therapy; Z98.890 Other specified postprocedural states; D64.89 Other specified anemias
CPT/HCPCS: 36415; 74177; 80048; 80053; 81001; 83690; 85007; 85027; 88304; 96365; 96375; C1782; J0131; J0330; J1100; J1885; J2250; J2405; J2543; J2704; J2710; J3010; J3490; J7030; J7120; Q9967; 99285-25

== ENCOUNTER 2017-01-13 23:10 | Emergency (ER) | payer SELFPAY ==
[~2017-01-13] VITALS: Ht 162.6 cm; Wt 72.6 kg
[2017-01-13 23:32] VITALS: BP 145/67
[2017-01-14] MEDS ORDERED: LIDOCAINE 1%/EPI 1:100,000 20 ML VIAL. INJ ONE
[2017-01-14] MEDS ORDERED: TETANUS AND DIPHTHERIA TOX/PF 0.5 ML DISP.SYRIN. VAX IM ONE (00:30)
--- NOTE | 2017-01-14 00:33 | PHYS DOC ---
Past Medical History Past Medical History: No Pertinent History Past Surgical History: Appendectomy Alcohol Use: None Drug Use: None Adult General Chief Complaint Chief Complaint: KNEE INJURY [facility] HPI Patient is a 26 year old Belarusian speaking male who presents with laceration to left distal thigh. Patient was running and caught his leg with a nail. Injury occurred just prior to arrival. Pain is described as moderate. Patient has a 3 cm stellate laceration to his distal thigh. Laceration is deep leading is controlled. No other injury. Tetanus status is unknown. Translation is assisted by the patient's friends and family. Review of Systems Review of Systems ROS as per HPI. All other ROS are negative. Current Medications Current Medications Current Medications Medications (Trade) Dose Ordered Sig/Krishna Start Time Stop Time Status Last Admin Dose Admin Lidocaine/ Epinephrine (Xylocaine 1%-Epi 1:100,000) 20 ml 1X ONCE 01/14/17 00:00 01/14/17 00:01 DC Tetanus/ Diphtheria Toxoids (Tenivac Syringe) 0.5 ml ONCE ONCE 01/14/17 00:30 01/14/17 00:31 01/14/17 00:05 0.5 ML Allergies Allergies Allergies Coded Allergies Type Severity Reaction Last Updated Verified No Known Drug Allergies 06/13/16 No Physical Exam Physical Exam Constitutional: Well developed, well nourished, no acute distress, non-toxic appearance. [] HENT: Normocephalic, atraumatic, bilateral external ears normal, oropharynx moist, no oral exudates, nose normal. [] Eyes: PERRLA, EOMI, conjunctiva normal, no discharge. [] s. [] Extremities: Left thigh, stellate laceration left middle distal thigh, bleeding controlled. Wound is clean without foreign body present on exploration. No muscle or tendon involvement. Neurologic: Alert and oriented X 3, normal motor function, normal sensory function, no focal deficits noted. [] Psychologic: Affect normal, judgement normal, mood normal. [] Current Patient Data Vital Signs Vital Signs Date Time Temp Pulse Resp B/P (MAP) Pulse Ox O2 Delivery O2 Flow Rate FiO2 01/13/17 23:32 98.3 78 16 98 Room Air 98.3 EKG EKG [] Radiology/Procedures Radiology/Procedures [Indication: [laceration to left thigh] Procedure: The patient was placed in the appropriate position and anesthesia around the distal mid thigh]. The area was then in with high pressure normal saline. The laceration was [closed with, #4 4-0 simple interrupted Ethilon sutures. There were no other acute symptoms or complaints. The wound area was then dressed with a bandage]. Total repaired wound length: 4 cm. Other Items:none The patient tolerated the procedure overrated the procedures well.. Complications: [None.] Course & Med Decision Making Course & Med Decision Making Pertinent Labs and Imaging studies reviewed. (See chart for details) [Wound cleansed and closed. Typical wound care instructions given. Patient to return to the ED in 10 days for suture removal. He is to return sooner if signs of infection. Patient verbalized understanding agreement discharge instructions prior to departure.] Dragon Disclaimer Dragon Disclaimer This electronic medical record was generated, in whole or in part, using a voice recognition dictation system. Departure Departure Impression: Primary Impression: Laceration of thigh, left Disposition: 01 HOME, SELF-CARE Referrals: NO PCP (PCP) Additional Instructions: Please keep wound clean and dry and covered. Apply Neosporin to the affected area times daily. Return to the ED in 10 days for sutural removal or sooner signs of infection. Scripts No Active Prescriptions or Reported Meds ANN COLEMAN DO Jan 14, 2017 00:32
== END 2017-01-14 01:14 | disposition home or self-care (01) ==
LOC: ER 23:10
DX: S71.112A Laceration without foreign body, left thigh, initial encounter (principal); W45.0XXA Nail entering through skin, initial encounter; Y93.89 Activity, other specified; Y99.8 Other external cause status; Y92.89 Other specified places as the place of occurrence of the external cause
CPT/HCPCS: 12002; 90471; 90714; 99283; J3490